=== PATIENT | male | born 1980 | race Caucasian/White ===

== ENCOUNTER 2019-08-16 10:55 | Emergency (ER) | payer MEDICAID ==
--- NOTE | 2019-08-16 12:05 | ER Document Report ---
ED Medical Screen (RME) - General Chief Complaint: Leg Injury Stated Complaint: LEG INJURY Time Seen by Provider: 08/16/19 11:58 Mode of Arrival: Ambulatory Information source: Patient Notes: 39 year-old male presented to ED for a laceration to the upper third of the right curry horizontal. Cut with a machete. Needs tetanus. Some day smoker. Bleeding is under control at this time. IR may Physical Exam - Vital signs Vitals: Temp Pulse Resp BP Pulse Ox 97.8 F 85 14 120/66 99 08/16/19 11:11 08/16/19 11:11 08/16/19 11:11 08/16/19 11:11 08/16/19 11:11 Course - Vital Signs Vital signs: Temp Pulse Resp BP Pulse Ox 97.8 F 85 14 120/66 99 08/16/19 11:11 08/16/19 11:11 08/16/19 11:11 08/16/19 11:11 08/16/19 11:11
--- NOTE | 2019-08-16 13:38 | ER Document Report ---
ED Wound - General Chief Complaint: Laceration Stated Complaint: LEG INJURY Time Seen by Provider: 08/16/19 11:58 Mode of Arrival: Ambulatory Information source: Patient Notes: 39-year-old male with no previous medical problems presents emergency room with laceration to his right curry. Patient states he was cutting down some overgrown bushes when he accidentally cut his curry with a machete. Bleeding is persistent. Unknown last tetanus shot. Able to walk without difficulty. TRAVEL OUTSIDE OF THE [place] IN LAST 30 DAYS: No - Related Data Allergies/Adverse Reactions: No Known Allergies Allergy (Verified 08/16/19 12:05) Past Medical History - General Information source: Patient - Social History Smoking Status: Current Some Day Smoker Frequency of alcohol use: None Drug Abuse: None Family History: Reviewed & Not Pertinent Patient has homicidal ideation: No - Immunizations Hx Diphtheria, Pertussis, Tetanus Vaccination: No Review of Systems - Review of Systems Constitutional: No symptoms reported Cardiovascular: No symptoms reported Respiratory: No symptoms reported Musculoskeletal: No symptoms reported Skin: Other - Laceration Neurological/Psychological: No symptoms reported -: Yes All other systems reviewed and negative Physical Exam - Vital signs Vitals: Temp Pulse Resp BP Pulse Ox 97.8 F 85 14 120/66 99 08/16/19 11:11 08/16/19 11:11 08/16/19 11:11 08/16/19 11:11 08/16/19 11:11 - General General appearance: Appears well, Alert In distress: Mild - Cardiovascular Rhythm: Regular Heart sounds: Normal auscultation Murmur: No - Extremities General lower extremity: Tender - To the site of the laceration., Normal ROM, Normal strength, Normal weight bearing - Neurological Neuro grossly intact: Yes Cognition: Normal Orientation: AAOx4 Nevaeh Coma Scale Eye Opening: Spontaneous Nevaeh Coma Scale Verbal: Oriented [place] Coma Scale Motor: Obeys Commands Nevaeh Coma Scale Total: 15 Speech: Normal Motor strength normal: LUE, RUE, LLE, RLE Sensory: Normal Notes: Positive right pedal pulse. Capillary refill less than 3 seconds. - Skin Skin Temperature: Warm Skin Moisture: Dry Skin Color: Normal Skin irregularity: Laceration Location of irregularity: Extremities - 5 cm laceration noted to the mid curry of the right lower extremity. Bleeding is persistent. Irregularity with: Tenderness Course - Re-evaluation Re-evalutation: 08/16/19 14:30 Wound was cleansed and sutured as documented. Dressing applied by nursing staff as documented. Patient was counseled on proper wound care. Sutures out 8 to 10 days. Patient was given strict return to the emergency room guidelines. Return for any new or worsening symptoms. All questions were answered. Patient verbalized understanding and agrees with plan of care. - Vital Signs Vital signs: Temp Pulse Resp BP Pulse Ox 98.4 F 82 16 138/64 H 100 08/16/19 14:15 08/16/19 14:15 08/16/19 14:15 08/16/19 14:15 08/16/19 14:15 Procedures - Laceration/Wound Repair Right Leg Time completed: 14:26 Wound length (cm): 5 Wound's Depth, Shape: Into muscle, Linear Laceration pre-procedure: Sterile PPE donned, Betadine prep applied, Sterile drapes applied Anesthetic type: 1% Lidocaine Volume Anesthetic (mLs): 4 Wound explored: Clean Irrigated w/ Saline (mLs): 50 Wound Repaired With: Sutures Suture Size/Type: 4:0 Number of Sutures: 12 Layer Closure?: No Post-procedure wound care: Sterile dressing applied Post-procedure NV exam normal: Yes Complications: No Adult Front & Back picture: 1 - 5 cm laceration Discharge - Discharge Clinical Impression: Laceration of right lower leg Qualifiers: Encounter type: initial encounter Qualified Code(s): S81.811A - Laceration without foreign body, right lower leg, initial encounter Condition: Stable Disposition: HOME, SELF-CARE Instructions: Laceration Care ([facility]), Prophylactic Antibiotic ([facility]), Tetanus Immunization Given ([facility]) Additional Instructions: Please return to your primary doctor, the ED, or an urgent care in 8 days for suture removal. Return immediately if you develop spreading redness around the wound, pus from the wound, worsening pain, or a fever of >100.4. Keep the area clean and dry. Wash gently with soap and water twice daily. Take antibiotics as prescribed. Return for any new or worsening symptoms.. Prescriptions: Cephalexin Monohydrate [Keflex 500 mg Capsule] 500 mg PO Q6H 10 Days #40 capsule
[2019-08-16] MEDS ORDERED: LIDOCAINE 1% INJ-PF (10 MG/ML) 30 ML SDV INJ ONE (13:39)
[2019-08-16] MEDS ORDERED: DIPH/PERTUSS(ACELL)/TETANUS VAC/PF 0.5 ML SYR (>=10YO) IM ONE (14:04)
[2019-08-16 15:51] VITALS: BP 138/64
== END 2019-08-16 14:15 | disposition home or self-care (01) ==
LOC: ER 10:55
DX: S86.221A Laceration of muscle(s) and tendon(s) of anterior muscle group at lower leg level, right leg, initial encounter (principal); S81.811A Laceration without foreign body, right lower leg, initial encounter; W26.8XXA Contact with other sharp object(s), not elsewhere classified, initial encounter; Y93.H2 Activity, gardening and landscaping; F17.200 Nicotine dependence, unspecified, uncomplicated; Z23 Encounter for immunization
CPT/HCPCS: 90471; 90715; 99282

== ENCOUNTER 2020-01-23 11:58 | Emergency (ER) | payer OTHER, MEDICAID ==
[2020-01-23] MEDS ORDERED: KETOROLAC TROMETHAMINE 60 MG/2 ML SDV IM ONE (13:20)
[2020-01-23] MEDS ORDERED: ACETAMINOPHEN 325 MG TABLET PO ONE (13:20)
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
--- NOTE | 2020-01-23 14:07 | RADIOLOGY REPORT (SQ) ---
EXAM DESCRIPTION: CHEST 2 VIEWS IMAGES COMPLETED DATE/TIME: 01/23/2020 1:53 pm REASON FOR STUDY: right rib pain COMPARISON: None. EXAM PARAMETERS: NUMBER OF VIEWS: two views TECHNIQUE: Digital Frontal and Lateral radiographic views of the chest acquired. RADIATION DOSE: NA LIMITATIONS: none FINDINGS: LUNGS AND PLEURA: No opacities, masses or pneumothorax. No pleural effusion. MEDIASTINUM AND HILAR STRUCTURES: No masses or contour abnormalities. HEART AND VASCULAR STRUCTURES: Heart normal size. No evidence for failure. BONES: No acute findings. HARDWARE: None in the chest. OTHER: No other significant finding. IMPRESSION: NO ACUTE RADIOGRAPHIC FINDING IN THE CHEST. TECHNICAL DOCUMENTATION: JOB ID: [id number] 2010 [employer]- All Rights Reserved Reading location - IP/workstation name: [email or web address]
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
== END 2020-01-23 14:38 | disposition home or self-care (01) ==
LOC: ER 11:58
DX: S29.012A Strain of muscle and tendon of back wall of thorax, initial encounter (principal); S29.011A Strain of muscle and tendon of front wall of thorax, initial encounter; M62.838 Other muscle spasm; M43.6 Torticollis; R07.9 Chest pain, unspecified; F17.200 Nicotine dependence, unspecified, uncomplicated; V49.40XA Driver injured in collision with unspecified motor vehicles in traffic accident, initial encounter
CPT/HCPCS: 99285; 96372; 71046; 72070; 72125; J1885